=== PATIENT | female | born 1970 | race Caucasian/White ===

== ENCOUNTER 2021-10-12 16:24 | Emergency (ER) | payer OTHER, SELFPAY ==
[2021-10-12 16:30] VITALS: BP 139/83; PULSE 71; RESP 18; TEMP 36.9; O2SAT 100
--- NOTE | 2021-10-12 16:46 | ED.GENADULT ---
HPI - General Adult General Chief complaint: Upper Respiratory Infection Stated complaint: sore throat and ear on right side Time Seen by Provider: 10/12/21 16:50 Source: patient, RN notes reviewed and old records reviewed Mode of arrival: ambulatory Limitations: no limitations History of Present Illness HPI narrative: 51-year-old female who presents to [facility] with complaints of right ear pain and sore throat which started yesterday. Patient reports that pain shoots up her neck to her right ear states at times pain is sharp. She reports about 2 weeks ago she had nasal drainage sinus headache which did resolve with use of [id number] Advil sinus medication. Patient denies any cough or respiratory congestion denies any shortness of breath. Patient has had COVID vaccines and also booster and flu shot. Patient denies any fevers chills or sweats, denies any body aches. Onset (ago): day(s) (1) Related Data Home Medications Medication Instructions Recorded Confirmed albuterol sulfate See Rx Instructions .ROUTE .COMPLEX 10/12/21 10/12/21 cholecalciferol (vitamin D3) 125 mcg PO DAILY 10/12/21 10/12/21 [Dialyvite Vitamin D] polyethylene glycol 3350 See Rx Instructions .ROUTE .COMPLEX 10/12/21 10/12/21 quetiapine 50 mg PO DAILY 10/12/21 10/12/21 sertraline 100 mg PO DAILY 10/12/21 10/12/21 vitamin B complex [Vitamin B 1 tablet PO DAILY 10/12/21 10/12/21 Complex-100] Allergies Allergy/AdvReac Type Severity Reaction Status Date / Time Penicillins Allergy Unknown Verified 10/12/21 16:45 Review of Systems Review of Systems: CONSTITUTIONAL: Denies fever, chills, or sweats. EYES: Denies visual changes, redness, or discharge. ENT: Denies rhinorrhea, congestion,positive for sore throat, or otalgia. CARDIOVASCULAR: Denies chest pain, palpitations, or edema. RESPIRATORY: Denies cough or dyspnea. GASTROINTESTINAL: Denies abdominal pain, nausea, vomiting, or diarrhea. GENITOURINARY: Denies dysuria or hematuria. SKIN: Denies rash or itching. MUSCULOSKELETAL: Denies back pain, joint pain, or myalgia. NEUROLOGIC: Denies headache, numbness, or weakness. PSYCHIATRIC: Positive for history of anxiety or depression. All systems reviewed & are unremarkable except as noted in HPI and below PMFSH Past Medical History Medical History (Updated 10/13/21 @ 16:03 by Frances Zaldivar NP) Anxiety and depression Sleep apnea Surgical History Surgical History (Updated 10/13/21 @ 16:08 by Frances Zaldivar NP) History of lymph node biopsy left neck benign History of tonsillectomy Social History Social History (Updated 10/13/21 @ 16:09 by Frances Zaldivar NP) Smoking packs per day: 1 Smoking cigarettes per day: 20.0 Years smoked: 30 Smoking pack-years: 30.00 Smoking status: Current every day smoker Alcohol intake: current Alcohol use details: rare Substance use type: does not use Gender identity (if verbalized by the patient): Female Comments At time of signature, agree with nursing past medical, surgical, social and family history. There is no relevant family history pertinent to the presenting complaint Exam Narrative: GENERAL: Well-appearing, well-nourished, and in no acute distress. HEAD: Normocephalic, atraumatic. EYES: PERRLA and EOMI. ENT: Nares clear, no rhinorrhea or epistaxis. Mucous membranes moist.Right TM normal with good light reflex, right ear canal red swollen and excoriated, Left TM normal with good light reflex, throat red with no lesions or exudates, tonsil absent. NECK: Supple.no lymphadenopathy CHEST: Clear to auscultation. No respiratory distress.no cough or congestion, no tachypnea SAO2 100% on room air HEART: Regular rate and rhythm. No murmur heard. Normal peripheral pulses. ABDOMEN: Soft, nontender, nondistended, normal active bowel sounds. EXTREMITIES: Normal range of motion. No edema. SKIN: Warm, dry, no rash. NEURO: No focal deficits. Alert and oriented x3. Course Course
== END 2021-10-12 17:05 | disposition home or self-care (01) ==
PROVIDERS: Emergency Provider Registered Nurse; PCP Nurse Practitioner Family
DX: H60.91 Unspecified otitis externa, right ear (principal); F17.210 Nicotine dependence, cigarettes, uncomplicated; F41.9 Anxiety disorder, unspecified; F32.A Depression, unspecified; G47.30 Sleep apnea, unspecified
CPT/HCPCS: 87081; 87880; 99213; G0463

== ENCOUNTER 2023-10-14 15:20 | Emergency (ER) | payer OTHER, SELFPAY ==
[2023-10-14 15:26] VITALS: BP 133/78; PULSE 72; RESP 20; TEMP 36.8; O2SAT 100
--- NOTE | 2023-10-14 15:38 | ED.SKABFB ---
HPI - Skin/Abscess/Foreign Bdy General Chief complaint: Skin/Abscess/Foreign Body Stated complaint: rash all over Source: patient, RN notes reviewed and old records reviewed Mode of arrival: ambulatory Limitations: no limitations History of Present Illness HPI narrative: 53-year-old female to [facility] with complaint of rash to bilateral arms, back, abdomen. Patient reports that rash started 5 days ago. Patient denies any new medications, soaps, environmental irritants or possible known triggers. Patient has attempted to treat at home with Benadryl and hydrocortisone cream with little to no relief. Patient denies pertinent history, rash to face, cough, shortness of breath. Patient able to tolerate fluids by mouth. Respirations even and nonlabored. No acute distress Related Data Home Medications Medication Instructions Recorded Confirmed albuterol sulfate 90 mcg/actuation 2 puff inhalation Q4-6H PRN 10/12/21 10/14/23 aerosol inhaler Shortness Of Breath Or Wheezing cholecalciferol (vitamin D3) 125 125 mcg PO DAILY 10/12/21 10/14/23 mcg (5,000 unit) capsule (Dialyvite Vitamin D) quetiapine 50 mg tablet 50 mg PO DAILY 10/12/21 10/14/23 sertraline 100 mg tablet 100 mg PO DAILY 10/12/21 10/14/23 vitamin B complex 1 tablet PO DAILY 10/12/21 10/14/23 aripiprazole 10 mg tablet 10 mg PO DAILY 10/14/23 10/14/23 budesonide-formoterol HFA 160 1 puff inhalation BID 10/14/23 10/14/23 mcg-4.5 mcg/actuation aerosol inhaler (Symbicort) fluoxetine 40 mg capsule 40 mg PO DAILY 10/14/23 10/14/23 fluticasone propionate 50 1 spray intranasal DAILY 10/14/23 10/14/23 mcg/actuation nasal spray,suspension nicotine 21 mg/24 hr daily 1 patch transdermal DAILY 10/14/23 10/14/23 transdermal patch phentermine 37.5 mg tablet 37.5 mg PO DAILY 10/14/23 10/14/23 Allergies Allergy/AdvReac Type Severity Reaction Status Date / Time Penicillins Allergy Unknown Verified 10/14/23 15:42 Review of Systems Review of Systems: All systems reviewed & are unremarkable except as noted in HPI and below Constitutional: Constitutional: Reports as per HPI and Reports difficulty sleeping Eyes: Eyes: Reports no additional eye complaints ENT: Reports system reviewed and no additional complaints, except as documented Cardiovascular: Cardiovascular: Reports no additional cardiovascular complaints, Denies chest pain and Denies dyspnea Respiratory: Respiratory: Reports no additional respiratory complaints, Denies cough and Denies dyspnea Musculoskeletal: Musculoskeletal: Reports no additional musculoskeletal complaints Integumentary/Breasts: Skin/Breast: Reports pruritus and Reports rash Neurologic: Reports system reviewed and no additional complaints, except as documented Psychiatric: Psychiatric: Reports no additional psychiatric complaints PMFSH Past Medical History Medical History Anxiety and depression Sleep apnea Surgical History Surgical History History of lymph node biopsy left neck benign History of tonsillectomy Social History Social History Smoking packs per day: 1 Smoking cigarettes per day: 20.0 Years smoked: 30 Smoking pack-years: 30.00 Smoking status: Current every day smoker Alcohol intake: current Alcohol use details: rare Substance use type: does not use Gender identity (if verbalized by the patient): Female Comments At the time of my signature, I reviewed and agree with the nursing past medical, surgical, social, and family history. There is no relevant family history pertinent to the patient complaint. Exam Const: General: cooperative, healthy appearing, no acute distress, alert, uncomfortable, well groomed and well nourished Nutritional Appearance: well nourished Orientation/consciousness: heidi pederson
== END 2023-10-14 15:57 | disposition home or self-care (01) ==
PROVIDERS: Emergency Provider Nurse Practitioner Family; PCP Hospitalist
DX: L25.9 Unspecified contact dermatitis, unspecified cause (principal); F41.9 Anxiety disorder, unspecified; F32.A Depression, unspecified
CPT/HCPCS: 99213; G0463